=== PATIENT | female | born 1970 | race Caucasian/White ===

== ENCOUNTER 2023-01-11 15:39 | Outpatient (CLI) | payer BC | END 2023-01-11 15:40 | disposition home or self-care (01) | LOC: BICULT 15:39 | PROVIDERS: ATTEND Acupuncturist | DX: R92.8 Other abnormal and inconclusive findings on diagnostic imaging of breast (principal) ==

== ENCOUNTER 2023-07-22 14:20 | Outpatient (CLI) | payer BC | END 2023-07-22 14:21 | disposition home or self-care (01) | LOC: BICMAMMO 14:20 | PROVIDERS: ATTEND Acupuncturist | DX: R92.8 Other abnormal and inconclusive findings on diagnostic imaging of breast (principal) | CPT/HCPCS: 77066; G0279 ==